=== PATIENT | female | born 1970 | race Caucasian/White ===

== ENCOUNTER 2019-01-17 19:07 | Emergency (ER) | payer BC, OTHER ==
--- NOTE | 2019-01-17 19:50 | EDM.PDOC ---
ED HPI GENERAL MEDICAL PROBLEM - General Chief Complaint: Abdominal Pain Stated Complaint: ABDOMINAL PAIN Time Seen by Provider: 01/17/19 19:30 Source of Information: Reports: Patient History Limitations: Reports: No Limitations - History of Present Illness INITIAL COMMENTS - FREE TEXT/NARRATIVE: 48-year-old female presents for evaluation and treatment of abdominal pain. Reports that the pain started gradually yesterday. She states that she's had similar symptoms to this before. She was seen and was told it was constipation. She has taken some magnesium citrate prior to arrival near and had multiple bowel movements continues to have pain. She has appreciated that movement really seems to worsen the pain. She reports associated symptoms of decreased appetite, fevers, chills and nausea. No vomiting. No blood in her stool. Primary care provider is Dr. Cramer. She's never had a colonoscopy before. Previous abdominal surgeries including appendectomy, hysterectomy and hernia repair. Treatments [employer]: Reports: Other Medication(s) Other Treatments [employer]: mag citrate Lower Abdomen Pain Score (Numeric/FACES): 6 - Related Data Allergies Allergy/AdvReac Type Severity Reaction Status Date / Time codeine Allergy Airway Verified 01/17/19 19:25 Tightness Home Meds: Home Meds Acetaminophen/oxyCODONE [Percocet 325-5 MG] 1 - 2 tab PO Q4HR PRN #20 tab [Rx] Ondansetron [Zofran ODT] 4 mg PO Q6H PRN #20 tab.dis 01/17/19 [Rx] levoFLOXacin [Levaquin] 750 mg PO DAILY #9 tab 01/17/19 [Rx] metroNIDAZOLE [Flagyl] 500 mg PO Q8H #29 tab 01/17/19 [Rx] Past Medical History - Past Surgical History GI Surgical History: Reports: Appendectomy, Hernia Repair/Other Female Surgical History: Reports: Hysterectomy Musculoskeletal Surgical History: Reports: Other (See Below) Other Musculoskeletal Surgeries/Procedures:: knee surgeries Social & Family History - Tobacco Use Smoking Status *Q: Never Smoker - Caffeine Use Caffeine Use: Reports: Coffee ED ROS GENERAL - Review of Systems Review Of Systems: See Below Constitutional: Reports: Fever, Chills, Decreased Appetite GI/Abdominal: Reports: Abdominal Pain, Nausea, Vomiting. Denies: Bloody Stool : Reports: No Symptoms ED EXAM, GI/ABD - Physical Exam Exam: See Below Exam Limited By: No Limitations General Appearance: Alert, WD/WN, Mild Distress Throat/Mouth: Normal Inspection, Normal Voice, No Airway Compromise Respiratory/Chest: No Respiratory Distress, Lungs Clear, Normal Breath Sounds Cardiovascular: Normal Peripheral Pulses, Regular Rate, Rhythm, No Murmur GI/Abdominal Exam: Normal Bowel Sounds, Soft, Guarding, Tender (suprapubic and LLQ) Neurological: Alert, Oriented, Normal Cognition Psychiatric: Normal Affect, Normal Mood Skin Exam: Warm, Dry, Normal Color Course - Vital Signs Last Recorded V/S: Last Vital Signs Temp 99.9 F 01/17/19 19:19 Pulse 94 01/17/19 19:19 Resp 18 01/17/19 19:19 BP 140/97 H 01/17/19 19:19 Pulse Ox 98 01/17/19 19:19 - Orders/Labs/Meds Orders: Active Orders 24 hr Category Date Time Status Peripheral IV Care [RC] . DIRECTED Care 01/17/19 19:54 Active Abdomen Pelvis w Cont [CT] Stat Exams 01/17/19 19:53 Taken UA W/MICROSCOPIC [URIN] Stat Lab 01/17/19 19:53 Ordered Sodium Chloride 0.9% [Saline Flush] Med 01/17/19 19:53 Active 10 ml FLUSH ASDIRECTED PRN levoFLOXacin [Levaquin] Med 01/17/19 23:15 Ordered 750 mg PO Q24H Peripheral IV Insertion Adult [OM.PC] Routine Oth 01/17/19 19:53 Ordered Medication Orders Levofloxacin (Levaquin) 750 mg PO Q24H FREDIS Sodium Chloride (Saline Flush) 10 ml FLUSH ASDIRECTED PRN PRN Reason: Keep Vein Open Last Admin: 01/17/19 20:46 Dose: 10 ml Labs: Laboratory Tests 01/17/19 01/17/19 Range/Units 20:49 20:49 WBC 10.68 H (3.98-10.04) K/mm3 RBC 4.59 (3.98-5.22) M/mm3 Hgb 13.1 (11.2-15.7) gm/dl Hct 40.9 (34.1-44.9) % MCV 89.1 (79.4-94.8) fl MCH 28.5 (25.6-32.2) pg MCHC 32.0 L (32.2-35.5) g/dl RDW Std Deviation 43.8 (36.4-46.3) fL Plt Count 284 (182-369) K/mm3 MPV 10.6 (9.4-12.3) fl Neutrophils % (Manual) 79 H (40-60) % Band Neutrophils % 1 (0-10) % Lymphocytes % (Manual) 10 L (20-40) % Atypical Lymphs % 0 % Monocytes % (Manual) 7 (2-10) % Eosinophils % (Manual) 2 (0.7-5.8) % Basophils % (Manual) 1 (0.1-1.2) Platelet Estimate Adequate RBC Morph Comment Normal Sodium 141 (136-145) mEq/L Potassium 4.2 (3.5-5.1) mEq/L Chloride 106 (98-107) mEq/L Carbon Dioxide 28 (21-32) mEq/L Anion Gap 11.2 (5-15) BUN 10 (7-18) mg/dL Creatinine 0.9 (0.55-1.02) mg/dL Est Cr Clr Drug Dosing 82.67 mL/min Estimated GFR (MDRD) > 60 (>60) mL/min BUN/Creatinine Ratio 11.1 L (14-18) Glucose 93 (74-106) mg/dL Calcium 9.0 (8.5-10.1) mg/dL Total Bilirubin 0.9 (0.2-1.0) mg/dL AST 35 (15-37) U/L ALT 55 (14-59) U/L Alkaline Phosphatase 96 (46-116) U/L C-Reactive Protein 11.5 H* (<1.0) mg/dL Total Protein 7.5 (6.4-8.2) g/dl Albumin 3.7 (3.4-5.0) g/dl Globulin 3.8 gm/dL Albumin/Globulin Ratio 1.0 (1-2) Lipase 118 (73-393) U/L Meds: Medications Generic Name Dose Route Start Last Admin Trade Name Freq PRN Reason Stop Dose Admin Levofloxacin 750 mg 01/17/19 23:15 Levaquin PO Q24H FREDIS Sodium Chloride 10 ml 01/17/19 19:53 01/17/19 20:46 Saline Flush FLUSH 10 ml ASDIRECTED PRN Administration Keep Vein Open Discontinued Medications Generic Name Dose Route Start Last Admin Trade Name Zafar PRN Reason Stop Dose Admin Hydromorphone HCl 0.5 mg 01/17/19 20:00 01/17/19 20:38 Dilaudid IVPUSH 01/17/19 20:01 0.5 mg ONETIME ONE Administration Hydromorphone HCl Confirm 01/17/19 20:42 01/17/19 20:47 Dilaudid Administered 01/17/19 20:43 Not Given Dose 0.5 mg .ROUTE .STK-MED ONE Hydromorphone HCl 0.5 mg 01/17/19 21:03 01/17/19 21:12 Dilaudid IVPUSH 01/17/19 21:04 0.5 mg ONETIME ONE Administration Hydromorphone HCl 0.5 mg 01/17/19 23:14 Dilaudid IVPUSH 01/17/19 23:15 ONETIME ONE Sodium Chloride 1,000 mls @ 999 mls/hr 01/17/19 19:53 01/17/19 20:38 Normal Saline IV 01/17/19 20:53 999 mls/hr ONETIME ONE Administration Metronidazole 500 mg 01/17/19 23:14 Flagyl PO 01/17/19 23:15 NOW STA - Radiology Interpretation Free Text/Narrative:: CT of the abdomen and pelvis with IV and oral contrast impression per vrad: shows acute diverticulitis. Vague hypodensity involving the left lobe of the liver. This may represent a focus of fatty replacement but appearance is nonspecific. Recommend nonemergent MRI to follow-up for further characterization. Left renal cyst - Re-Assessments/Exams Free Text/Narrative Re-Assessment/Exam: 01/17/19 23:15 Reviewed the labs and CT with the patient. Will Treat for diverticulitis. Offered admission for pain control but she declined and would like to go home and try this on outpatient basis. I will prescribe her some Percocet to take at home. She states that she has taken Percocet and Dilaudid before without any problems. recommend follow-up in the clinic. Recommend colonoscopy once the diverticulitis has resolved. She was made aware of the area on the left lobe of her liver. encouraged to have an MRI with primary care. Discharge instructions as documented. Departure - Departure Time of Disposition: 23:16 Disposition: Home, Self-Care 01 Condition: Fair Clinical Impression: Diverticulitis - Discharge Information *PRESCRIPTION DRUG MONITORING PROGRAM REVIEWED*: No *COPY OF PRESCRIPTION DRUG MONITORING REPORT IN PATIENT MANUELA: No Prescriptions: Acetaminophen/oxyCODONE [Percocet 325-5 MG] 1 - 2 tab PO Q4HR PRN #20 tab PRN Reason: Pain levoFLOXacin [Levaquin] 750 mg PO DAILY #9 tab metroNIDAZOLE [Flagyl] 500 mg PO Q8H #29 tab Ondansetron [Zofran ODT] 4 mg PO Q6H PRN #20 tab.dis PRN Reason: Nausea Referrals: Jefry Horvath MD [Primary Care Provider] - Forms: ED Department Discharge Additional Instructions: you were given medication ER the can affect your ability to drive and operate machinery. Do not drive or operate machinery within 10 hours of taking prescription narcotic pain medication. Levaquin 1 tab daily for 10 days. your first dose was given in the ER. Start your prescription tomorrow. Flagyl 1 tab every 8 hours for 10 days. your first dose was given in the ER. Start your prescription tomorrow morning. Zofran 1 tab sublingual every 6-8 hours as needed for nausea. Percocet 1 or 2 tabs PO every 4-6 hours as needed for pain. Percocet is habit forming, take as few of these as needed to control your pain. Do not drive or operate machinery within 10 hours of taking prescription narcotic pain medication. Follow up with your primary care provider next week for a recheck of your abdomen to ensure symptoms are improving. Recommend a colonoscopy once the diverticulitis has resolved in about 6-8 weeks. An incidental area was seen on your liver on your CT scan tonight, it is recommended that you have an MRI to further evaluate this area in the near future. Your primary care provider can order this for you. Recommend clear fluids and a bland diet. May advance to a more normal diet as tolerated. Please return to the ER for symptoms change or worsen. - My Orders Last 24 Hours: My Active Orders 01/17/19 19:53 Abdomen Pelvis w Cont [CT] Stat UA W/MICROSCOPIC [URIN] Stat Sodium Chloride 0.9% [Saline Flush] 10 ml FLUSH ASDIRECTED PRN Peripheral IV Insertion Adult [OM.PC] Routine 01/17/19 19:54 Peripheral IV Care [RC] . DIRECTED 01/17/19 23:15 levoFLOXacin [Levaquin] 750 mg PO Q24H - Assessment/Plan Last 24 Hours: My Active Orders 01/17/19 19:53 Abdomen Pelvis w Cont [CT] Stat UA W/MICROSCOPIC [URIN] Stat Sodium Chloride 0.9% [Saline Flush] 10 ml FLUSH ASDIRECTED PRN Peripheral IV Insertion Adult [OM.PC] Routine 01/17/19 19:54 Peripheral IV Care [RC] . DIRECTED 01/17/19 23:15 levoFLOXacin [Levaquin] 750 mg PO Q24H
[2019-01-17] MEDS ORDERED: Sodium Chloride 0.9% 10 ML Syringe FLUSH PRN (19:53)
[2019-01-17] MEDS ORDERED: Sodium Chloride 0.9% 1,000 ML IV ONE (19:53)
[2019-01-17] MEDS ORDERED: HYDROmorphone 0.5 MG/0.5 ML Syringe IVPUSH ONE (20:00)
[2019-01-17] MEDS ORDERED: HYDROmorphone 0.5 MG/0.5 ML Syringe ONE (20:42)
[2019-01-17] MEDS ORDERED: HYDROmorphone 1 MG/ML Syringe IVPUSH ONE ×2 (21:03→23:14)
[2019-01-17] MEDS ORDERED: metroNIDAZOLE 500 MG Tab PO STA (23:14)
[2019-01-17] MEDS ORDERED: Levofloxacin 750 MG Tab PO SCH (23:15)
--- NOTE | 2019-01-18 07:09 | CT ---
CT abdomen and pelvis Technique: Multiple axial sections were obtained from above the dome of the diaphragm inferiorly through the pubic symphysis. Intravenous contrast was utilized. Oral contrast was also utilized. Comparison: No prior CT abdomen or pelvis exam. Findings: Visualized lung bases show mild scattered atelectasis. Low-density lesion noted within the left lobe of the liver measuring 2.5 cm. This does not have Hounsfield unit measurements of cyst and is nonspecific. No additional abnormality is seen within the liver. Spleen appears within normal limits. Adrenal glands show no nodule. Right kidney shows no hydronephrosis or mass. Left kidney shows a cortical cyst measuring 2.1 cm in size. Gallbladder contains no calcified gallstones. Pancreas is within normal limits. Aorta shows no aneurysm. No retroperitoneal adenopathy or mesenteric abnormalities are seen. No pelvic mass or adenopathy is seen. Inflammatory change noted around the sigmoid colon in area of diverticulosis. Findings are felt compatible with mild diverticulitis. No free fluid seen at this time. Appendix not visualized with certainty. Bone window settings were reviewed which appear within normal limits for the patient's age. Delayed images show contrast within both distal ureters and within the bladder. Impression: 1. Findings compatible with mild diverticulitis within the sigmoid colon. 2. 2.5 cm liver lesion within the left lobe. Nonemergent MRI liver (without and with contrast) is recommended. 3. Atelectasis scattered within both lung bases. Left renal cyst. Diagnostic code #9 I agree with preliminary report issued by [facility] ([facility] preliminary report dictated on 01/18/19, 12:01 AM Central Time)
== END 2019-01-17 23:52 | disposition home or self-care (01) ==
LOC: JD.ED 19:07
DX: K57.32 Diverticulitis of large intestine without perforation or abscess without bleeding (principal); Z88.5 Allergy status to narcotic agent; Z90.49 Acquired absence of other specified parts of digestive tract
CPT/HCPCS: 36415; 74177; 80053; 83690; 85007; 85027; 86140; 96361; 96374; 96376; 99284; A9270; J1170; J7040

== ENCOUNTER 2019-04-23 06:23 | Day surgery (SDC) | payer OTHER ==
--- NOTE | 2019-04-22 11:45 | PCM.PREANE ---
Preanesthetic Assessment - Anesthesia/Transfusion/Family Hx Anesthesia History: Prior Anesthesia Without Reaction Family History of Anesthesia Reaction: No Transfusion History: No Prior Transfusion(s) Intubation History: Unknown - Review of Systems General: No Symptoms Pulmonary: No Symptoms (Chews tobacco:last chew at 1900 ETOH: occasionally) Cardiovascular: No Symptoms Gastrointestinal: No Symptoms Other: Reports: None - Physical Assessment NPO Status Date: 04/22/19 NPO Status Time: 22:00 Vital Signs: HR: BP: Resp: Sat: Temp: Height: 1.8 m Weight: 92.533 kg ASA Class: 2 Mental Status: Alert & Oriented x3 Airway Class: Mallampati = 2 Dentition: Reports: Normal Dentition, Implants (upper front), Caries Thyro-Mental Finger Breadths: 3 Mouth Opening Finger Breadths: 3 ROM/Head Extension: Full Lungs: Clear to Auscultation, Normal Respiratory Effort Cardiovascular: Regular Rate, Regular Rhythm, No Murmurs - Allergies Allergies/Adverse Reactions: Allergies Allergy/AdvReac Type Severity Reaction Status Date / Time acetaminophen Allergy Airway Verified 04/22/19 13:34 [From Tylenol-Codeine #3] Tightness codeine Allergy Airway Verified 04/22/19 13:34 [From Tylenol-Codeine #3] Tightness - Anesthesia Plan Pre-Op Medication Ordered: None - Acknowledgements Anesthesia Type Planned: MAC Pt an Appropriate Candidate for the Planned Anesthesia: Yes Alternatives and Risks of Anesthesia Discussed w Pt/Guardian: Yes Pt/Guardian Understands and Agrees with Anesthesia Plan: Yes PreAnesthesia Questionnaire - Past Surgical History GI Surgical History: Reports: Appendectomy, Hernia Repair/Other Female Surgical History: Reports: Hysterectomy Musculoskeletal Surgical History: Reports: Other (See Below) Other Musculoskeletal Surgeries/Procedures:: knee surgeries - HOME MEDS Home Medications: Home Meds . [No Known Home Meds] 04/22/19 [History] - CURRENT (IN HOUSE) MEDS Current Meds: Current Medications Lactated Ringer's (Ringers, Lactated) 1,000 mls @ 125 mls/hr IV ASDIRECTED FREDIS Stop: 04/23/19 23:00 Lidocaine/Sodium Bicarbonate (Buffered Lidocaine 1% In Ns 8.4%) 0.25 ml IDERM ONETIME PRN PRN Reason: Prior to IV Start Stop: 04/23/19 18:00 Sodium Chloride (Saline Flush) 10 ml FLUSH ASDIRECTED PRN PRN Reason: Keep Vein Open Stop: 04/23/19 18:00
[~2019-04-23 06:23] MED LIST: Lactated Ringers 1,000 ML IV SCH; Lidocaine 1%/Sod Bicarbonate in NS 8.4% 1 ML Syringe IDERM PRN; Sodium Chloride 0.9% 10 ML Syringe FLUSH PRN
[2019-04-23] MEDS ORDERED: Lidocaine 1% 6 ML ONE (06:25)
[2019-04-23] MEDS ORDERED: Propofol 200 MG/20 ML SDV ONE ×3 (06:25→07:55)
[2019-04-23] MEDS ORDERED: fentaNYL 100 MCG/2 ML SDV ONE (06:25)
[2019-04-23] MEDS ORDERED: Atropine 0.4 MG/ML SDV ONE (07:29)
[2019-04-23] MEDS ORDERED: Glycopyrrolate 0.2 MG/ML SDV ONE (07:29)
[2019-04-23] MEDS ORDERED: Lactated Ringers 1,000 ML ONE (07:36)
--- NOTE | 2019-04-23 08:06 | PCM48HPAN ---
Post Anesthesia Note - EVALUATION WITHIN 48HRS OF ANESTHETIC Vital Signs in Normal Range: Yes Patient Participated in Evaluation: Yes Respiratory Function Stable: Yes Airway Patent: Yes Cardiovascular Function Stable: Yes Hydration Status Stable: Yes Pain Control Satisfactory: Yes Nausea and Vomiting Control Satisfactory: Yes Mental Status Recovered: Yes Vital Signs: Last Vital Signs Temp 36.4 C 04/23/19 06:30 Pulse 56 L 04/23/19 06:30 Resp 16 04/23/19 06:30 BP 113/72 04/23/19 06:30 Pulse Ox 95 04/23/19 06:30
--- NOTE | 2019-04-23 08:06 | PCM.PRNOTE ---
- Free Text/Narrative Note: Date: 04/23/2019 Procedure: diagnostic colonoscopy, history of diverticulitis Endoscopist: Richard Oswald MD Findings: good prep. IC valve visualized. Scattered diverticula with no other mucosal abnormalities noted. Detailed report: The patient was taken to the endoscopy suite and placed in left lateral decubitus position. Timeout was performed, monitored anesthesia care initiated. Visual inspection of the anus revealed no abnormalities. Digital rectal exam was unremarkable. The colonoscope was advanced all the way to the ileocecal valve. Prep was noted to be good. On withdrawal of the colonoscope, mucosal surfaces were inspected carefully. There was scattered diverticular disease throughout the colon. No evidence for active inflammation, no other mucosal pathology noted. No biopsies were obtained. On retroflexion of the scope in the rectum, no significant hemorrhoidal disease was observed. The patient tolerated the procedure well. Richard Oswald MD General Surgery
== END 2019-04-23 08:47 | disposition home or self-care (01) ==
LOC: JD.SDS 06:23
PROVIDERS: ATTEND Surgery
DX: Z09 Encounter for follow-up examination after completed treatment for conditions other than malignant neoplasm (principal); K57.30 Diverticulosis of large intestine without perforation or abscess without bleeding; F17.220 Nicotine dependence, chewing tobacco, uncomplicated; Z87.19 Personal history of other diseases of the digestive system; Z88.5 Allergy status to narcotic agent; Z88.6 Allergy status to analgesic agent
CPT/HCPCS: 45378; J0461; J2001; J2704; J3010; J3490; J7120